=== PATIENT | female | born 2000 | race Caucasian/White ===

== ENCOUNTER 2019-10-16 10:49 | Emergency (ER) | payer OTHER ==
[2019-10-16 11:00] VITALS: BP 139/56
[2019-10-16] MEDS ORDERED: DEXAMETHASONE 4 MG TABLET PO ONE (11:15)
--- NOTE | 2019-10-16 11:42 | PHYS DOC ---
Past History Past Medical History: MRSA, Other Additional Past Medical Histor: TETRALOGY OF FALLOT, ENDOCARDITIS Past Surgical History: Other Additional Past Surgical Histo: MULTIPLE HEART SURGERIES, SVC STENT, PULMONARY VALVE REPLACED Smoking: Non-smoker Alcohol Use: None Drug Use: None Adult General Chief Complaint Chief Complaint: COUGH HPI HPI A 19-year-old female presents to the emergency department with a three-week history of cough. She reports flu-like symptoms around [place]. The cough has persisted until today. The cough is worse at night while working. She denies mucus production, fever, shortness of breath or chest pain. She denies any recent surgery, leg swelling, or hormones. Review of Systems Review of Systems Constitutional: Denies fever or chills Eyes: Denies redness or eye pain HENT: Reports mild nasal congestion but denies sore throat Respiratory: Reports a cough but denies shortness of breath Cardiovascular: Denies chest pain or palpitations GI: Denies abdominal pain, nausea, or vomiting : Denies dysuria or hematuria Musculoskeletal: Denies back pain or joint pain Integument: Denies rash or skin lesions Neurologic: Denies headache, focal weakness or sensory changes Complete systems were reviewed and found to be within normal limits, except as documented in this note. Current Medications Current Medications Current Medications Medications (Trade) Dose Ordered Sig/Hannah Start Time Stop Time Status Last Admin Dose Admin Dexamethasone (Decadron) 10 mg 1X ONCE 10/16/19 11:15 10/16/19 11:16 DC Allergies Allergies Allergies Coded Allergies Type Severity Reaction Last Updated Verified immune globulin,gamma (IgG) human Allergy Severe Anaphylaxis 10/16/19 Yes Physical Exam Physical Exam Constitutional: Well developed, well nourished, no acute distress, non-toxic appearance HENT: Normocephalic, atraumatic, oropharynx moist Eyes: PERRL, EOMI, conjunctiva normal, no discharge Neck: Normal range of motion, no tenderness, supple Cardiovascular: Heart rate normal, regular rhythm Lungs & Thorax: Bilateral breath sounds clear to auscultation, no wheezing Abdomen: Soft, no tenderness Skin: Warm, dry, no erythema, no rash Back: No tenderness, no CVA tenderness Extremities: No tenderness, ROM intact, no edema Neurologic: Alert and oriented X 3, normal motor function, normal sensory function, no focal deficits noted Psychologic: Affect normal, judgment normal, mood normal Current Patient Data Vital Signs Vital Signs Date Time Temp Pulse Resp B/P (MAP) Pulse Ox O2 Delivery O2 Flow Rate FiO2 10/16/19 11:00 98.2 96 18 99 Room Air EKG EKG [] Radiology/Procedures Radiology/Procedures PROCEDURE: CHEST PA & LATERAL Chest radiograph 10/16/2019 10:57 AM INDICATION: Cough COMPARISON: None available TECHNIQUE: Frontal and lateral views of the chest are provided. FINDINGS: The cardiomediastinal silhouette is within normal limits. There are no pleural effusions. There is no pulmonary vascular congestion. There is no pneumothorax. The lungs are clear. Superior vena cava stent is identified. Stent projects over the left upper cardiac silhouette. Median sternotomy changes are present. No significant osseous abnormality is identified. IMPRESSION: No acute cardiopulmonary process. Electronically signed by: Rosa Garcia MD (10/16/2019 11:40 AM) [facility] Course & Med Decision Making Course & Med Decision Making A 19-year-old female presents to the emergency department with chief complaint of cough. PE is unlikely according to PERC rule. Pneumonia is unlikely with a negative chest x-ray. Patient was instructed to use humidifier while sleeping. A cough suppressant was prescribed. Patient was discharged home in stable condition. Patient stable for discharge with outpatient follow-up with PCP. Discussed findings and plan with patient, who acknowledges understanding and agreement. Dragon Disclaimer Dragon Disclaimer This electronic medical record was generated, in whole or in part, using a voice recognition dictation system. Departure Departure: Impression: Primary Impression: Bronchitis Disposition: HOME, SELF-CARE Condition: STABLE Referrals: PCP,NO (PCP) Patient Instructions: Acute Bronchitis, [id number] Scripts Guaifenesin/Codeine Phosphate (GUAIFENESIN-CODEINE SYRUP) 118 Ml Liquid 10 ML PO Q4HRS PRN for COUGH, #240 ML Prov: VINAY MUNOZ DO 10/16/19 Benzonatate (TESSALON PERLE) 100 Mg Capsule 1 CAP PO TID PRN for COUGH, #21 CAP Prov: VINAY MUNOZ DO 10/16/19 PERC Rule for PE PERC Rule for PE Response (Comments) Value Age > 50: No 0 HR > 100: No 0 Sa02 on room air <95%: No 0 Unilateral leg swelling: No 0 Hemoptysis: No 0 Recent surgery or trauma: No 0 Prior PE or DVT: No 0 Hormone use: No 0 Total 0 MUNOZ,VINAY Jiang DO Oct 16, 2019 11:41
[2019-10-16] MEDS ORDERED: GUAI118L13 PO (11:43)
[2019-10-16] MEDS ORDERED: BENZ100C PO (11:43)
== END 2019-10-16 11:50 | disposition home or self-care (01) ==
LOC: ER 10:49
DX: J40 Bronchitis, not specified as acute or chronic (principal); Z86.14 Personal history of Methicillin resistant Staphylococcus aureus infection; Z88.7 Allergy status to serum and vaccine
CPT/HCPCS: 71046; 99284; J8540